=== PATIENT | male | born 1975 | race Caucasian/White ===

== ENCOUNTER 2017-09-17 11:02 | Day surgery (SDC) | payer OTHER ==
[~2017-09-17 11:02] MED LIST: ACETAMINOPHEN 1,000 MG/100 ML BTL IV ONE; CEFAZOLIN 2 Gram 2 GM/50 ML BAG IVPB ONE; FAMOTIDINE 20MG TABLET PO ONE; MECLIZINE 25 MG TABLET PO ONE; METOCLOPRAMIDE 10 MG TABLET PO ONE
[2017-09-17] MEDS ORDERED: KETOROLAC 30 MG/ML VIAL IVP ONE (11:03)
[2017-09-17] MEDS ORDERED: BUPIVACAINE 0.5% W/EPI MPF 30 ML VIAL IVP ONE (11:03)
[2017-09-17] MEDS ORDERED: SEVOFLURANE 250 ML INH ONE (11:03)
[2017-09-17] MEDS ORDERED: *PACU ONLY* KETAMINE HCL 10 MG/ML (20ML) VIAL IV ONE (11:03)
[2017-09-17] MEDS ORDERED: PROPOFOL 10 MG/ML VIAL IV ONE (11:03)
--- NOTE | 2017-09-17 21:53 | Operative Note ---
DATE OF SURGERY: 09/17/2017 PREOPERATIVE DIAGNOSIS: INTERNAL DERANGEMENT RIGHT KNEE. POSTOPERATIVE DIAGNOSES: 1. DIFFUSE SYNOVITIS. 2. GRADE 3 CHONDROMALACIA PATELLA. 3. GRADE 3 CHONDROMALACIA MEDIAL FEMORAL CONDYLE. 4. TEAR OF THE POSTEROLATERAL HORN OF THE MEDIAL MENISCUS. PROCEDURE: 1. RIGHT KNEE ARTHROSCOPY WITH PARTIAL MEDIAL MENISCECTOMY. 2. RIGHT KNEE ARTHROSCOPY WITH COMPLETE SYNOVECTOMY. 3. RIGHT KNEE ARTHROSCOPY WITH CHONDROPLASTY OF THE PATELLA AND MEDIAL FEMORAL CONDYLE. STAFF SURGEON: MAIDA WEAVER M.D. ANESTHESIA: GENERAL. PREPARATION: CHLORAPREP. INDIVIDUAL CONSIDERATIONS: NONE. PROCEDURE: The patient was taken to the Operating Room and placed supine on the operating table. He had a successful induction with general anesthetic. His right lower extremity was prepped and draped in the usual fashion. The patient had a superior lateral inflow cannula placed. The skin was infiltrated with 0.5% Marcaine with Epinephrine prior. A stab wound was made and the knee was inflated with normal saline. An inferior medial and an inferior lateral portal were made in a similar fashion. A large clear effusion was drained. The patient had diffuse synovitis and a synovectomy was performed with a shaver of both gutters and the pouch and some moderate synovitis seen in the notch. No loose bodies were seen in the pouch or either gutter. There were grade 3 changes on the patella, which were smoothed. He had a large area of grade 3 change with peeling cartilage and fraying cartilage and crabmeat changes of the medial femoral condyle centered at about 45 degrees, about the size of a half dollar. This was smoothed with a shaver. He had a degenerative tear involving the posterior lateral corner of the medial meniscus and this was unstable and debrided back to a stable rim with basket forceps and a shaver. I would say its total length was maybe 1 cm or 1.5 cm. The remainder of the posterior horn, medial horn, and anterior horns were intact. In the notch, the cruciates were intact and synovitis again was debrided. Lateral compartment structures were well seen and probed and found to be normal. The knee was then irrigated out with saline to remove loose floating debris. The portals were closed with fanta and 20 mL of 0.5% Marcaine with Epinephrine along with 5 mg of Morphine and 40 mg of DepoMedrol were injected into the knee and a sterile Bulkee compressive dressing was applied. The patient tolerated the procedures well. Needle and sponge counts were correct. Estimated blood loss was minimal and he was taken back to Recovery in good condition. There were no complications. cc: Dr. Tigre Adler JOB NUMBER: [id number] MTDD
== END 2017-09-17 14:35 | disposition home or self-care (01) ==
LOC: SUR 11:02
PROVIDERS: ATTEND Orthopaedic Surgery
DX: M23.221 Derangement of posterior horn of medial meniscus due to old tear or injury, right knee (principal); M22.41 Chondromalacia patellae, right knee; M65.9 Synovitis and tenosynovitis, unspecified; M94.261 Chondromalacia, right knee
CPT/HCPCS: 29881; 29876; 01400; J1885; J0690